=== PATIENT | male | born 1990 | race Caucasian/White ===

== ENCOUNTER 2017-04-08 00:20 | Emergency (ER) | payer OTHER ==
[~2017-04-08 00:20] MED LIST: ATARAX,VISTARIL25 MG PO; NOHOMEMEDS; PERCOCET 5/31 TABLET PO; TOBREX5 ML LEFT EYE; TYLENOL WITH C1 EACH PO; ZOFRAN ODT4 MG PO
== END 2017-04-08 00:30 | disposition left against medical advice (07) ==
LOC: EME 00:20
DX: T40.1X1A Poisoning by heroin, accidental (unintentional), initial encounter (principal); T51.0X1A Toxic effect of ethanol, accidental (unintentional), initial encounter; F11.10 Opioid abuse, uncomplicated; F10.10 Alcohol abuse, uncomplicated; Z53.21 Procedure and treatment not carried out due to patient leaving prior to being seen by health care provider